=== PATIENT | male | born 1975 | race Caucasian/White ===

== ENCOUNTER 2021-11-22 08:04 | Emergency (ER) | payer OTHER, SELFPAY ==
[2021-11-22] VITALS (11 sets, daily range): BP systolic 130–170; BP diastolic 71–90; PULSE 75–88; RESP 13–18; TEMP 36.7; O2SAT 95–97; BMI 32.3
--- NOTE | 2021-11-22 08:36 | ED_ITS ---
HPI - Nausea/Vomiting/Diarrhea General Chief complaint: Dizziness Stated complaint: N/V exposed to poison hemlock Time Seen by Provider: 11/22/21 08:26 History of Present Illness HPI Narrative: Patient is a 46-year-old male history of vertigo presents today with vomiting and dizziness. States he was working with poison him like yesterday. He was careful work gloves long sleeves handled it mostly with gardening tools. He then everted both walked away so he did not inhale fumes. Early this morning woke up with dizziness he has vomited couple of times. He feels like his left ear is ?squishy.He states the dizziness is worse with movement. Seems to be when he gets up. That seems to trigger his nausea. No numbness tingling or weakness. No chest pain or palpitations. Related Data Previous Rx's Medication Instructions Recorded meclizine 25 mg tablet 25 mg PO TID PRN #10 tab 11/22/21 ondansetron 4 mg disintegrating 4 mg PO Q8H PRN #10 tab 11/22/21 tablet Review of Systems Review of Systems Narrative: GENERAL: Denies chills, fatigue, malaise, fever, sweats, travel HEENT: Denies sinus pain, ear pain, sore throat, difficulty swallowing, neck pain RESPIRATORY: Denies dyspnea, cough, wheezing, hemoptysis, sputum. CARDIOVASCULAR: Denies chest pain, palpitations, orthopnea, edema GASTROINTESTINAL: See HPI : Denies dysuria, frequency, incontinence, hematuria, urinary retention, flank pain. MUSCULOSKELETAL: Denies weakness, joint pain, or bony pain SKIN: No rash, no erythema, no pruritus NEUROLOGIC: Denies weakness, dizziness, headache, numbness, change in speech, confusion PSYCHIATRIC: No concerning psychosocial issues. 12 point review of systems is negative except for those stated above and HPI Patient History Social History Smoking Status: Current some day smoker Exam Initial Vital Signs Initial Vital Signs: Vital Signs Pulse Rate 88 11/22/21 08:23 Blood Pressure 170/90 H 11/22/21 08:23 Pulse Oximetry 96 11/22/21 08:23 GENERAL: Alert well-appearing 46-year-old male and in no acute distress. EARS: External ears normal bilaterally canals are clear bilaterally tympanic membranes are non erythematous without fluid bilateral HEENT: Head atraumatic,EOMI, pupils reactive, face symmetric, moist mucous membranes , neck is supple without meningeal signs CARDIOVASCULAR: Regular rate and rhythm without murmurs, rubs or gallops. RESPIRATORY: Breath sounds equal bilaterally, no wheezes rales or rhonchi. ABDOMEN: Soft, nontender. Normoactive bowel sounds all 4 quadrants. No guarding or rebound. EXTREMITIES: Normal range of motion, no clubbing or edema. Neurovascularly intact NEUROLOGICAL: Alert and oriented x4.Normal gait and speech. SKIN: Warm, dry, no laceration, no petechiae, no rashes or lesions. Course Orders Ordered: ED Orders 11/22/21 08:31 Complete Blood Count AUTO DIFF Stat Comprehensive Metabolic Panel Stat Lipase Stat 11/22/21 08:36 EKG-12 Lead Stat Discontinued Medications Sodium Chloride (Normal Saline 0.9%) 1,000 mls @ 1,000 mls/hr IV CONT DAVID Last Infusion: 11/22/21 10:29 Dose: 0 mls/hr Documented by: Admin: 11/22/21 09:03 Dose: 1,000 mls/hr Documented by: JOEL Meclizine HCl (Meclizine Hcl 12.5 Mg Tablet) 25 mg PO NOW ONE Stop: 11/22/21 08:37 Last Admin: 11/22/21 09:03 Dose: 25 mg Documented by: JOEL Ondansetron HCl (Ondansetron 4 Mg/2 Ml Inj) 4 mg IV NOW ONE Stop: 11/22/21 08:37 Last Admin: 11/22/21 09:03 Dose: 4 mg Documented by: JOEL Vital Signs Vital signs: Vital Signs - 8 hr 11/22/21 08:23 11/22/21 08:25 11/22/21 08:30 Temperature 98.1 F Pulse Rate 88 85 86 Respiratory Rate 18 Blood Pressure 170/90 H 170/90 H 161/90 H Pulse Oximetry 96 97 96 11/22/21 09:00 11/22/21 09:24 11/22/21 09:30 Temperature Pulse Rate 82 78 76 Respiratory Rate 16 16 Blood Pressure 135/76 137/72 130/76 Pulse Oximetry 97 96 95 11/22/21 09:46 11/22/21 10:00 11/22/21 10:29 Temperature Pulse Rate 79 76 75 Respiratory Rate 17 15 13 Blood Pressure 133/75 134/73 Pulse Oximetry 97 95 96 11/22/21 10:30 11/22/21 10:47 Temperature Pulse Rate 83 Respiratory Rate 18 Blood Pressure 131/71 131/71 Pulse Oximetry 95 MDM - Nausea/Vomiting/Diarrhea Lab Data Result diagrams: 11/22/21 08:31 11/22/21 08:31 Labs: Lab Results 11/22/21 11/22/21 Range/Units 08:31 08:31 WBC 8.2 (4.5-11.0) X10^3/uL RBC 4.23 L (4.5-5.9) X10^6/uL Hgb 13.5 (13.5-17.5) g/dL Hct 39.6 L (41-53) % MCV 93.5 (80-100) fL MCH 31.9 (26-34) PG MCHC 34.1 (30-36) % RDW 13.2 (11.6-14.8) % Plt Count 290 (150-400) X10^3/uL Neut % (Auto) 70.1 (50-75) % Lymph % (Auto) 21.6 L (25-40) % [place] % (Auto) 6.4 (3-14) % Eos % (Auto) 1.0 L (2-4) % Baso % (Auto) 0.9 (0-2) % Neut # (Auto) 5800 (0818-3816) /uL Lymph # (Auto) 1800 (2619-1385) /uL [place] # (Auto) 500 (0-900) /uL Eos # (Auto) 100 (0-450) /uL Baso # (Auto) 100 (0-100) /uL Sodium 138 (137-145) mmol/L Potassium 4.0 (3.4-5.1) mmol/L Chloride 105 (98-107) mmol/L Carbon Dioxide 24 (22-32) mmol/L BUN 17 (9-20) mg/dL Creatinine 0.55 L (0.66-1.25) mg/dL Estimated GFR > 60 (>60) mL/min BUN/Creatinine Ratio 30.9 H (6-22) Glucose 107 H (70-100) mg/dL Calcium 8.8 (8.4-10.2) mg/dL Total Bilirubin 0.4 (0.2-1.3) mg/dL AST 28 (17-59) IU/L ALT 26 (<50) IU/L Alkaline Phosphatase 65 (38-126) U/L Total Protein 7.3 (6.3-8.2) g/dL Albumin 4.4 (3.5-5.0) g/dL Globulin 2.9 (1.7-4.1) g/dL Albumin/Globulin Ratio 1.5 (1.0-2.8) Lipase 78 (23-300) U/L Urine Dip Bedside Urine Glucose Negative Bedside Urine Bilirubin - Negative Bedside Urine Ketone - Negative Urine Specific [place] 1.015 Bedside Urine Occult Blood - Negative Bedside Urine pH 6.5 Bedside Urine Protein - Negative Bedside Urine Urobilinogen - Negative Bedside Urine Nitrite - Negative Bedside Urine Leukocytes - Negative Esterase ECG Data Interpretation: Normal sinus rhythm rate 78 WA interval 164 QRS [address] changes no T- wave inversions MDM Narrative Medical decision making narrative: Patient sounds as though he took proper precautions against the poison hemlock. Nonetheless I consulted poison Control who agreed. at this time likely something else causing his symptoms. Patient does have a history of vertigo, symptoms seem to be similar. At this time the patient is overall feeling significantly better. He has been up to the restroom multiple times during his ED stay. No focal deficits. He says that he feels like his left ear has opened up and drained. Pressure in his sinuses has improved. Symptoms are most consistent with of vertigo similar to his previous presentations. At this time no indication for imaging. He has no focal deficits. He was mostly concerned about the poisonous hemlock. Discharge Plan Departure Patient Disposition: Home Clinical Impression: Vertigo Instructions: DI for Vertigo Activity Restrictions/Additional Instructions: *You have been diagnosed with vertigo *What to do: At this time I think may be a virus or sinus infection has caused her vertigo to act up. I am glad that her feeling a little bit better. This is unlikely to do with the poison hemlock *Continue to take medications as directed Meclizine 25 mg every 8 hours if needed for dizziness Zofran 4 mg every 8 hours if needed for nausea vomiting *Follow up with your primary care provider in 2-3 days or call [phone] *Return to ER if you should have worsening dizziness, persistent vomiting, numbness tingling weakness, muscle weakness, muscle spasms or any new, worsening or concerning symptoms Prescriptions: New meclizine 25 mg tablet 25 mg PO TID PRN (Reason: dizziness) Qty: 10 0RF ondansetron 4 mg tablet,disintegrating 4 mg PO Q8H PRN (Reason: nausea and vomiting) Qty: 10 0RF
[2021-11-22 08:46] LABS: Add Manual Diff / Slide Review NO; Basophils Absolute Auto 100 /uL (0-100); Basophils Percent Auto 0.9 % (0-2); Eosinophils Absolute Auto 100 /uL (0-450); Hematocrit 39.6 % (41-53); Hemoglobin 13.5 g/dL (13.5-17.5); Lymphocytes Absolute Auto 1800 /uL (1100-4500); Lymphocytes Percent Auto 21.6 % (25-40); Mean Corpuscular HGB Conc 34.1 % (30-36); Mean Corpuscular Hemoglobin 31.9 PG (26-34); Mean Corpuscular Volume 93.5 fL (80-100); Monocytes Absolute Auto 500 /uL (0-900); Monocytes Percent Auto 6.4 % (3-14); Neutrophils Absolute Auto 5800 /uL (1500-7000); Neutrophils Percent Auto 70.1 % (50-75); Platelet Count 290 X10^3/uL (150-400); Red Blood Cell Count 4.23 X10^6/uL (4.5-5.9); Red Cell Distribution Width 13.2 % (11.6-14.8); White Blood Cell Count 8.2 X10^3/uL (4.5-11.0)
[2021-11-22 08:53] LABS: Alanine Aminotransferase 26 IU/L (<50); Albumin 4.4 g/dL (3.5-5.0); Albumin Globulin Ratio 1.5 (1.0-2.8); Alkaline Phosphatase 65 U/L (38-126); Aspartate Aminotransferase 28 IU/L (17-59); BUN Creatinine Ratio 30.9 (6-22); Bilirubin Total 0.4 mg/dL (0.2-1.3); Blood Urea Nitrogen 17 mg/dL (9-20); Calcium 8.8 mg/dL (8.4-10.2); Carbon Dioxide 24 mmol/L (22-32); Chloride 105 mmol/L (98-107); Estimated Glomerular Filt Rate > 60 mL/min (>60); Globulin 2.9 g/dL (1.7-4.1); Glucose 107 mg/dL (70-100); HEMOLYSIS < 15 (0-50); Lipase 78 U/L (23-300); Sodium 138 mmol/L (137-145); Total Protein 7.3 g/dL (6.3-8.2)
[2021-11-22] MEDS: SODIUM CHLORIDE 0.9% 1,000 ML 1000 ML IV (09:03)
[2021-11-22] MEDS: ONDANSETRON 4 MG/2 ML INJ IV (09:03)
[2021-11-22] MEDS: MECLIZINE HCL 12.5 MG TABLET 25 MG PO (09:03)
== END 2021-11-22 10:49 | disposition home or self-care (01) ==
PROVIDERS: Emergency Provider Emergency Medicine
DX: R42 Dizziness and giddiness (principal); R11.2 Nausea with vomiting, unspecified
CPT/HCPCS: 36415; 80053; 81003; 83690; 85025; 93005; 93010; 96361; 96374; 99284; J2405

== ENCOUNTER → 2023-02-27 13:36 | Outpatient (CLI) | payer OTHER, SELFPAY ==
--- NOTE | 2023-02-27 | DI.ECHO.S_ITS ---
[facility] +---------+ : : [address] : : : : [id number] : : : : Phone: [phone] Echocardiogram Report + + :Name: MARTY LAND Study Date: 02/27/2023 Height: 70 in : [id number] ReadingLocation: Weight: 217 lb : : Gender: Male BSA: 2.2 m2 : :: 1975 Age: 47 yrs BP: 154/98 mmHg: :Reason For Study: palpitations : : Performed By: Elida Loredo : :Referring: LA CARRANZA M : + + Interpretation Summary The left ventricle is normal in size and wall thickness. Left ventricular systolic function appears normal without focal wall motion abnormalities. The ejection fraction is estimated to be 60-65%. Diastolic parameters suggest a relaxation abnormality of the left ventricle, consistent with probable normal filling pressures. The right ventricle is normal in size and function. Pulmonary artery pressures cannot be estimated because of the lack of a measurable TR jet velocity but the IVC suggests a CVP of around 8 mmHg. The left atrium is borderline dilated. There is no significant valvular heart disease. The aortic root is borderline dilated. The ascending aorta is mildly enlarged. Procedure: A two-dimensional transthoracic echocardiogram with color flow and Doppler was performed. The study quality was technically good. There is no prior echocardiogram noted for this patient. The patient was in normal sinus rhythm during the exam. Left Ventricle: The left ventricle is normal in size and wall thickness. The estimated left ventricular end diastolic volume is 34 ml. There is no thrombus. There is no ventricular septal defect visualized. Left ventricular systolic function appears normal without focal wall motion abnormalities. The ejection fraction is estimated to be 60-65%. Diastolic parameters suggest a relaxation abnormality of the left ventricle, consistent with probable normal filling pressures. Right Ventricle: The right ventricle is normal in size and function. Atria: The left atrium is borderline dilated. There is no Doppler evidence for an interatrial shunt. Mitral Valve: The mitral valve is normal in structure but abnormal in function. The mitral valve leaflets appear mildly thickened, but open well. There is no mitral valve stenosis. There is trace mitral regurgitation. Aortic Valve: The aortic valve is trileaflet. The aortic valve opens well. There is no aortic valve stenosis. No aortic regurgitation is present. Tricuspid Valve: The tricuspid valve is normal in structure and function. There is a trace or physiologic amount of tricuspid regurgitation. Pulmonary artery pressures cannot be estimated because of the lack of a measurable TR jet velocity but the IVC suggests a CVP of around 8 mmHg. Pulmonic Valve: The pulmonic valve leaflets are thin and pliable; valve motion is normal. There is no pulmonic valvular regurgitation. There is no significant valvular heart disease. Great Vessels: The aortic root is borderline dilated. The ascending aorta is mildly enlarged. The IVC is of normal diameter and collapses less than 50% with a sniff. This suggests a right atrial pressure of 8 mm Hg. Pericardium/ Pleura There is no pericardial effusion. There is no pleural effusion. MMode/2D Measurements & Calculations LVIDd: 5.0 cm LVOT diam: 2.5 cm LVIDs: 3.0 cm Ao root diam: 4.0 cm FS: 39.4 % asc Aorta Diam: 3.7 cm EPSS: 0.84 cm IVSd: 1.0 cm LVPWd: 0.79 cm LV valle. diameter/BSA (cm/m^2): 2.3 LV sys. diameter/BSA (cm/m^2): 1.4 LA A2 area: 21.3 cm2 RA area: 15.0 cm2 LA A4 area: 21.7 cm2 IVC diam: 1.2 cm LA length (vol): 5.5 cm LA vol: 71.3 ml LA vol index: 33.0 ml/m2 RVD1 (basal): 3.2 cm TAPSE: 1.9 cm Doppler Measurements & Calculations Ao V2 max: 130.2 cm/sec LVOT Max Andrew: 106.4 cm/sec Ao V2 mean: 104.6 cm/sec LV V1 max P.5 mmHg Ao max P.8 mmHg LV V1 VTI: 22.7 cm Ao mean P.6 mmHg JOSE ANGEL(I,D): 4.1 cm2 Ao V2 VTI: 27.8 cm JOSE ANGEL(V,D): 4.1 cm2 sev ratio: 0.82 JOSE ANGEL indexed to BSA (cm^2/m^2): 1.9 MV E max andrwe: 59.5 cm/sec PA V2 max: 86.9 cm/sec MV A max andrew: 79.3 cm/sec PA V2 mean: 64.8 cm/sec MV E/A: 0.75 PA mean P.8 mmHg Med Peak E' Andrew: 7.1 cm/sec PA pr(Accel): 17.3 mmHg E/E' med: 8.4 Lat Peak E' Andrew: 7.4 cm/sec E/E' lat: 8.0 E/e' average: 8.2 MV dec time: 0.24 sec SV(LVOT): 114.8 ml Reading Physician:06:02 PM
== END ==
PROVIDERS: PCP Family Medicine; Referring Provider Family Medicine; Visit Provider Family Medicine
DX: R00.2 Palpitations (principal); R07.9 Chest pain, unspecified; E78.5 Hyperlipidemia, unspecified; Z82.49 Family history of ischemic heart disease and other diseases of the circulatory system; I77.89 Other specified disorders of arteries and arterioles
CPT/HCPCS: 93306

== ENCOUNTER 2023-08-26 13:46 | Emergency (ER) | payer OTHER, SELFPAY ==
[2023-08-26] VITALS (8 sets, daily range): BP systolic 138–155; BP diastolic 81–94; PULSE 72–94; RESP 16; TEMP 36.6; O2SAT 94–96; BMI 31.5
[2023-08-26 16:10] LABS: Alanine Aminotransferase 31 IU/L (<50); Albumin 4.5 g/dL (3.5-5.0); Albumin Globulin Ratio 1.5 (1.0-2.8); Alkaline Phosphatase 55 U/L (38-126); Aspartate Aminotransferase 28 IU/L (17-59); Bilirubin Total 0.4 mg/dL (0.2-1.3); Blood Urea Nitrogen 16 mg/dL (9-20); Calcium 9.4 mg/dL (8.4-10.2); Carbon Dioxide 26 mmol/L (22-32); Chloride 104 mmol/L (98-107); Estimated Glomerular Filt Rate > 60 mL/min (>60); Glucose 98 mg/dL (70-100); HEMOLYSIS < 15 (0-50); Lipase 88 U/L (23-300); Potassium 3.8 mmol/L (3.4-5.1); Sodium 140 mmol/L (137-145); Total Protein 7.5 g/dL (6.3-8.2)
[2023-08-26 16:15] LABS: Add Manual Diff / Slide Review NO; Basophils Absolute Auto 100 /uL (0-100); Basophils Percent Auto 0.7 % (0-2); Eosinophils Absolute Auto 200 /uL (0-450); Eosinophils Percent Auto 1.6 % (2-4); Hematocrit 39.9 % (41-53); Hemoglobin 13.7 g/dL (13.5-17.5); Lymphocytes Absolute Auto 3300 /uL (1100-4500); Lymphocytes Percent Auto 33.7 % (25-40); Mean Corpuscular HGB Conc 34.3 % (30-36); Mean Corpuscular Hemoglobin 32.2 PG (26-34); Mean Corpuscular Volume 93.9 fL (80-100); Monocytes Absolute Auto 700 /uL (0-900); Monocytes Percent Auto 7.5 % (3-14); Neutrophils Absolute Auto 5500 /uL (1500-7000); Neutrophils Percent Auto 56.5 % (50-75); Platelet Count 291 X10^3/uL (150-400); Red Blood Cell Count 4.25 X10^6/uL (4.5-5.9); Red Cell Distribution Width 13.1 % (11.6-14.8); White Blood Cell Count 9.7 X10^3/uL (4.5-11.0)
--- NOTE | 2023-08-26 16:27 | DI.CT.S_ITS ---
PROCEDURE: CT ABDOMEN PELVIS W CON INDICATIONS: IV contrast only/left side abdominal pain TECHNIQUE: After the administration of intravenous contrast, axial sections acquired from the lung bases to the pubic symphysis. Coronal and sagittal reformats were performed. For radiation dose reduction, the following was used: automated exposure control, adjustment of mA and/or kV according to patient size. COMPARISON: None. FINDINGS: Image quality: Diagnostic. Lower Chest: No significant findings. ABDOMEN: Liver: No solid mass. Gallbladder: No radiopaque gallstones or wall thickening. Biliary ducts: No biliary dilation. Pancreas: No ductal dilation. Spleen: Size is within normal limits. Adrenal Glands: No adrenal nodules. Kidneys and Ureters: No hydronephrosis. No solid mass. No complex renal cystic lesion which requires follow up. Stomach and Bowel: Increased quantity of solid stool throughout the colon. Short segment of proximal sigmoid colon decompression and slight mural enhancement without pericolonic inflammation. No changes to suggest acute diverticulitis. Stomach and bowel loops are within normal limits. Normal appendix. Peritoneum: No abnormal intraperitoneal fluid. No free air. Ventral Wall: No significant ventral hernia. Abdominal Nodes: No retroperitoneal or mesenteric adenopathy by size criteria. Vessels: Aorta and inferior vena cava are normal in size. PELVIS: Pelvic Organs: Unremarkable. Bladder: No bladder wall thickening, accounting for underdistention. Pelvic Nodes: No enlarged lymph nodes. Miscellaneous: No inguinal hernias are seen. Bones: No aggressive osseous abnormality. IMPRESSION: Mildly increased quantity of solid colonic stool. No evidence of acute diverticulitis. There is one short segment of mild colonic spasm without other inflammatory changes. Dictated by: Felicia Mcdermott M.D. on 08/26/2023 at 17:20 Approved by: Felicia Mcdermott M.D. on 08/26/2023 at 17:24
--- NOTE | 2023-08-26 16:41 | ED_ITS ---
HPI - Abdominal Pain General Chief Complaint: Abdominal Pain Stated Complaint: per pt thinks diverticulitis Time Seen by Provider: 08/26/23 16:07 Source: patient Mode of arrival: Ambulatory History of Present Illness HPI narrative: Patient here with complains of left lower quadrant and left lower back pain since this morning. Worse with movement and palpation. No black or bloody stools. No urinary complaints. No prior history of diverticulitis. Related Data Previous Rx's Medication Instructions Recorded meclizine 25 mg tablet 25 mg PO TID PRN dizziness #10 tabs 11/22/21 ondansetron 4 mg disintegrating 4 mg PO Q8H PRN nausea and 11/22/21 tablet vomiting #10 tabs Allergies Allergy/AdvReac Type Severity Reaction Status Date / Time ibuprofen Allergy Verified 08/26/23 14:11 morphine Allergy Migraine Verified 08/26/23 14:11 Review of Systems Review of Systems Narrative: GENERAL: negative chills, fatigue, malaise, fever, sweats. HEENT: negative sinus pain, ear pain, sore throat RESPIRATORY: negative dyspnea, cough CARDIOVASCULAR: negative chest pain, palpitations GASTROINTESTINAL: negative nausea, vomiting, positive abdominal pain : negative dysuria, frequency, hematuria MUSCULOSKELETAL: negative muscle or bony pain SKIN: negative rash, skin lesions NEUROLOGIC: negative weakness, numbness ROS Unobtainable: All systems reviewed & are unremarkable except as noted in HPI and below Patient History Social History Smoking Status: Former smoker Smoking Status: Former smoker alcohol intake frequency: a few times a week Substance Use Type: does not use Exam Narrative Exam Narrative: GENERAL: in no distress, not toxic not dyspneic HEAD: Normocephalic. EYES: Pupils equal round ENT: Mucous membranes moist. NECK: Trachea midline. CARDIOVASCULAR: Regular rate and rhythm RESPIRATORY: Clear to auscultation. Breath sounds equal bilaterally. No wheezes, rales, or rhonchi. GASTROINTESTINAL: Abdomen soft, reproducible left lower quadrant tenderness reproducible lower left lumbar tenderness but no CVA tenderness. No pain out of portion exam. Bowel sounds are present. No peritoneal signs. EXTREMITIES: No gross deformities. BACK: No flank tenderness. NEURO: AOx4. SKIN: Warm and dry PSYCH: Not anxious, is cooperative Initial Vital Signs Initial Vital Signs: Vital Signs Temperature 98 F 08/26/23 14:06 Pulse Rate 94 H 08/26/23 14:06 Respiratory Rate 16 08/26/23 14:06 Blood Pressure 153/94 H 08/26/23 14:06 Pulse Oximetry 96 08/26/23 14:06 Oxygen Delivery Method Room Air 08/26/23 14:06 Course Orders Ordered: ED Orders 08/26/23 15:30 Complete Blood Count AUTO DIFF Stat Comprehensive Metabolic Panel Stat Lipase Stat 08/26/23 16:27 CT abdomen pelvis w con Stat Discontinued Medications Hydrocodone Bitart/Acetaminophen (Hydrocodone/Acet 5/325 Tablet) 2 tab PO NOW ONE Stop: 08/26/23 16:28 Last Admin: 08/26/23 17:09 Dose: 2 tab Documented By: YURI Sodium Chloride (Normal Saline 0.9%) 1,000 mls @ 1,000 mls/hr IV BOLUS ONE Stop: 08/26/23 17:26 Last Admin: 08/26/23 17:07 Dose: 1,000 mls/hr Documented By: YURI Ondansetron HCl (Ondansetron 4 Mg Odt) 4 mg PO NOW PRN PRN Reason: Nausea And Vomiting Ondansetron HCl (Ondansetron 4 Mg/2 Ml Inj) 4 mg IV NOW PRN PRN Reason: Nausea And Vomiting Vital Signs Vital signs: Vital Signs - 8 hr 08/26/23 14:06 08/26/23 15:38 08/26/23 15:49 Temperature 98 F Pulse Rate 94 H 79 Respiratory Rate 16 Blood Pressure 153/94 H 155/81 H Pulse Oximetry 96 95 Oxygen Delivery Method Room Air 08/26/23 15:49 08/26/23 16:00 08/26/23 16:00 Temperature Pulse Rate 78 74 Respiratory Rate Blood Pressure 142/81 H Pulse Oximetry 95 95 Oxygen Delivery Method 08/26/23 16:30 08/26/23 16:30 08/26/23 17:00 Temperature Pulse Rate 72 72 Respiratory Rate Blood Pressure 138/83 Pulse Oximetry 94 94 Oxygen Delivery Method 08/26/23 17:30 08/26/23 18:00 08/26/23 18:00 Temperature Pulse Rate 72 74 Respiratory Rate Blood Pressure 147/91 H Pulse Oximetry 94 96 Oxygen Delivery Method MDM - Abdominal Pain Lab Data 08/26/23 15:30 02/16/24 15:30 Labs: Lab Results 08/26/23 Range/Units 15:30 WBC 9.7 (4.5-11.0) X10^3/uL RBC 4.25 L (4.5-5.9) X10^6/uL Hgb 13.7 (13.5-17.5) g/dL Hct 39.9 L (41-53) % MCV 93.9 (80-100) fL MCH 32.2 (26-34) PG MCHC 34.3 (30-36) % RDW 13.1 (11.6-14.8) % Plt Count 291 (150-400) X10^3/uL Neut % (Auto) 56.5 (50-75) % Lymph % (Auto) 33.7 (25-40) % [place] % (Auto) 7.5 (3-14) % Eos % (Auto) 1.6 L (2-4) % Baso % (Auto) 0.7 (0-2) % Neut # (Auto) 5500 (3481-8151) /uL Lymph # (Auto) 3300 (1057-1936) /uL [place] # (Auto) 700 (0-900) /uL Eos # (Auto) 200 (0-450) /uL Baso # (Auto) 100 (0-100) /uL Sodium 140 (137-145) mmol/L Potassium 3.8 (3.4-5.1) mmol/L Chloride 104 (98-107) mmol/L Carbon Dioxide 26 (22-32) mmol/L BUN 16 (9-20) mg/dL Creatinine 0.64 L (0.66-1.25) mg/dL Estimated GFR > 60 (>60) mL/min BUN/Creatinine Ratio 25.0 H (6-22) Glucose 98 (70-100) mg/dL Calcium 9.4 (8.4-10.2) mg/dL Total Bilirubin 0.4 (0.2-1.3) mg/dL AST 28 (17-59) IU/L ALT 31 (<50) IU/L Alkaline Phosphatase 55 (38-126) U/L Total Protein 7.5 (6.3-8.2) g/dL Albumin 4.5 (3.5-5.0) g/dL Globulin 3.0 (1.7-4.1) g/dL Albumin/Globulin Ratio 1.5 (1.0-2.8) Lipase 88 (23-300) U/L Point of care testing: Urine Dip Bedside Urine Glucose Negative Bedside Urine Bilirubin - Negative Bedside Urine Ketone - Negative Urine Specific Steele 1.015 Bedside Urine Occult Blood - Negative Bedside Urine pH 6.0 Bedside Urine Protein - Negative Bedside Urine Urobilinogen - Negative Bedside Urine Nitrite - Negative Bedside Urine Leukocytes - Negative Esterase Imaging Data CT scan - abdomen/pelvis: Radiologist's Impression: [address] [address] [address] Scan Report Signed Patient: Prince Goldsmith MR#: [id number] : 1975 Acct:[id number] Age/Sex: 48 / M Date of Service: 08/26/23 Loc: ED Accession Number: [id number] Procedure: CT abdomen pelvis w con Ordering Provider: Philip Sánchez MD PROCEDURE: CT ABDOMEN PELVIS W CON INDICATIONS: IV contrast only/left side abdominal pain TECHNIQUE: After the administration of intravenous contrast, axial sections acquired from the lung bases to the pubic symphysis. Coronal and sagittal reformats were performed. For radiation dose reduction, the following was used: automated exposure control, adjustment of mA and/or kV according to patient size. COMPARISON: None. FINDINGS: Image quality: Diagnostic. Lower Chest: No significant findings. ABDOMEN: Liver: No solid mass. Gallbladder: No radiopaque gallstones or wall thickening. Biliary ducts: No biliary dilation. Pancreas: No ductal dilation. Spleen: Size is within normal limits. Adrenal Glands: No adrenal nodules. Kidneys and Ureters: No hydronephrosis. No solid mass. No complex renal cystic lesion which requires follow up. Stomach and Bowel: Increased quantity of solid stool throughout the colon. Short segment of proximal sigmoid colon decompression and slight mural enhancement without pericolonic inflammation. No changes to suggest acute diverticulitis. Stomach and bowel loops are within normal limits. Normal appendix. Peritoneum: No abnormal intraperitoneal fluid. No free air. Ventral Wall: No significant ventral hernia. Abdominal Nodes: No retroperitoneal or mesenteric adenopathy by size criteria. Vessels: Aorta and inferior vena cava are normal in size. PELVIS: Pelvic Organs: Unremarkable. Bladder: No bladder wall thickening, accounting for underdistention. Pelvic Nodes: No enlarged lymph nodes. Miscellaneous: No inguinal hernias are seen. Bones: No aggressive osseous abnormality. IMPRESSION: Mildly increased quantity of solid colonic stool. No evidence of acute diverticulitis. There is one short segment of mild colonic spasm without other inflammatory changes. Dictated by: Felicia Mcdermott M.D. on 08/26/2023 at 17:20 Approved by: Felicia Mcdermott M.D. on 08/26/2023 at 17:24 [facility] Narrative Medical decision making narrative: Patient here with complains of left lower quadrant and left lower back pain since this morning. Worse with movement and palpation. No black or bloody stools. No urinary complaints. No prior history of diverticulitis. After history and exam CBC CMP urinalysis CT abdomen pelvis, patient states he has had hydrocodone without problems in the past., Zofran normal saline [facility] CC: Abdominal pain Complicating co-morbidities: None Data collected from: Patient and Medical records reviewed: No recent visit for this complaint Differential considered: Includes but not limited to diverticulitis kidney stone pyelonephritis UTI bowel obstruction colitis Exam documented above, pertinent findings include: Tender left lower quadrant Lab Test results independently reviewed as above. Pertinent findings: WBC 9.7 sodium 140 potassium 3.8 lipase 88 Imaging studies independently reviewed: CT abdomen pelvis mild increased quantity of solid colonic stool. Otherwise no acute findings Treatments: Zofran normal saline hydrocodone Re-evaluations: 6:00 p.m.. Reviewed results with patient and . At this time they are reassuring. There is stool burden in the colon. He will try ihuu-pga-nugegow laxatives at home. He does not want any prescription medications for pain. He does agree, careful observation over the weekend and return immediately if worsening. He is early in his symptoms less than 12 hours. Discussion: Appropriate for discharge home. Exam and laboratory studies are reassuring. Pain is controlled. He states pain is only 3/10 through the course of the day. He does not want any prescriptions. Return precautions reviewed. Nontoxic at discharge. Diagnosis: Abdominal pain back pain Discharge Plan Departure Patient Disposition: Home Clinical Impression: Abdominal pain Qualifiers: Abdominal location: left lower quadrant Qualified Code(s): R10.32 - Left lower quadrant pain Back pain Qualifiers: Back pain location: low back pain Chronicity: acute Back pain laterality: left Sciatica presence: without sciatica Qualified Code(s): M54.50 - Low back pain, unspecified Instructions: DI for Low Back Pain, DI for Abdominal Pain-Adult Activity Restrictions/Additional Instructions: Please see family doctor next week for re-evaluation. You may try jnnv-jpb-hikgszx laxatives to promote stool movement based on CT scan imaging does show retained stool in the colon. At this time your laboratory studies and CT scan imaging otherwise is reassuring. No antibiotics are indicated. Return if worse if any questions or concerns Prescriptions: No Action meclizine 25 mg tablet 25 mg PO TID PRN (Reason: dizziness) Qty: 10 0RF ondansetron 4 mg tablet,disintegrating 4 mg PO Q8H PRN (Reason: nausea and vomiting) Qty: 10 0RF Referrals: Deirdre Ryan DO [Primary Care Provider] - Stand Alone Forms: Patient Portal/API
[2023-08-26] MEDS: SODIUM CHLORIDE 0.9% 1,000 ML 1000 ML IV (17:07)
[2023-08-26] MEDS: HYDROCODONE/ACET 5/325 TABLET 2 TAB PO (17:09)
== END 2023-08-26 18:20 | disposition home or self-care (01) ==
PROVIDERS: Emergency Provider Emergency Medicine; PCP Family Medicine
DX: R10.32 Left lower quadrant pain (principal); M54.50 Low back pain, unspecified
CPT/HCPCS: 36415; 74177; 80053; 81003; 83690; 85025; 96360; 99284; Q9967

== ENCOUNTER → 2024-03-02 12:05 | Outpatient (CLI) | payer OTHER, SELFPAY ==
--- NOTE | 2024-03-02 12:06 | DI.MG.S_ITS ---
MALE BILATERAL DIGITAL DIAGNOSTIC MAMMOGRAM 3D/2D: 03/02/2024 CLINICAL: Bilateral Breast Pain and Swelling. No prior exams were available for comparison. No significant masses, calcifications, or other findings are seen in either breast. IMPRESSION: INCOMPLETE: NEEDS ADDITIONAL IMAGING EVALUATION There is no abnormality seen in either breast to correspond with the area of clinical concern reported as pruritic nipples, and overlying swelling and tenderness. No palpable masses. An ultrasound is recommended for further evaluation and is scheduled to immediately follow this examination. This exam was interpreted at Station ID: [id number]. NOTE: For mammograms, a report in lay terms will be sent to the patient. Approximately 15% of breast malignancies will not be visualized mammographically. In the management of a palpable breast mass, a negative mammogram must not discourage biopsy of a clinically suspicious lesion. Electronically Signed By: Horacio Manley M.D. aty/:03/02/2024 13:09:25 ACR BI-RADS Category 0: Incomplete [id number]
--- NOTE | 2024-03-02 12:06 | DI.US.S_ITS ---
PROCEDURE: US SCROTUM INDICATIONS: abnormal levels of hormones in specimens TECHNIQUE: Real-time scanning was performed of the scrotum and testicles, with image documentation. Color and pulse Doppler interrogation was performed of both testicles. COMPARISON: [facility], CT, CT ABDOMEN PELVIS W CON, 08/26/2023, 16:56. FINDINGS: Right: Testicle is normal in size at 5 x 3.5 x 2.2 cm, and homogenous in echotexture. Epididymis is normal in overall size and morphology. No hydrocele. Varicocele is present. Overlying scrotal skin is normal in thickness. Left: Testicle is normal in size at 4.6 x 3.4 x 2.2 cm, and homogeneous in echotexture. Epididymis is normal in overall size and morphology. No hydrocele. Varicocele is present. Overlying scrotal skin is normal in thickness. Doppler: Color and pulse Doppler demonstrate normal and symmetric arterial flow in both testicles. IMPRESSION: 1. No mass. 2. No findings to suggest testicular torsion or epididymitis. 3. Bilateral varicoceles. No hydrocele. Dictated by: Trent Crook M.D. on 03/04/2024 at 18:19 Approved by: Trent Crook M.D. on 03/04/2024 at 18:23
--- NOTE | 2024-03-02 12:06 | DI.US.S_ITS ---
LIMITED ULTRASOUND OF LEFT BREAST: 03/02/2024 CLINICAL: Bilateral nipple redness and itching. Comparison is made to exam dated: 03/02/2024 [facility]. Color flow and real-time ultrasound of the left breast retroareolar were performed. Hein scale images of the real-time examination were reviewed. There is small gynecomastia in the left breast. IMPRESSION: BENIGN There is no sonographic evidence of malignancy. Left gynecomastia. There is no abnormality seen in the left breast to correspond with the reported nipple abnormality, however, recommend clinical follow up for persistent or worsening symptoms, or development of any clinically suspicious findings. Findings and recommendations were conveyed to the patient during today's evaluation. This exam was interpreted at Station ID: [id number]. Electronically Signed By: Horacio Manley M.D. aty/:03/02/2024 13:34:07 letter sent: Male Normal Exam Ultrasound BI-RADS: 2 Benign
--- NOTE | 2024-03-02 12:06 | DI.US.S_ITS ---
PROCEDURE: US BREAST RT LIMITED COMPARISON: [facility], BREAST LT LIMITED, 03/02/2024, 13:07. INDICATIONS: abnormal levels of hormones in specimens FINDINGS: IMPRESSION: Dictated by: Horacio Manley M.D. on 03/02/2024 at 13:16 Approved by: Horacio Manley M.D. on 03/02/2024 at 14:28
--- NOTE | 2024-03-02 12:07 | DI.MRI.S_ITS ---
PROCEDURE: MR BRAIN (PITUITARY) WWO CON INDICATIONS: abnormal levels of hormones in specimens TECHNIQUE: Noncontrast sagittal and axial FLAIR, axial gradient echo, axial diffusion and ADC through the brain. Thin-slice sagittal and coronal T1 spin echo, coronal T2 fast spin echo through the pituitary. After the administration contrast, optional dynamic coronal T1 spin echo, thin-slice coronal and sagittal T1 spin echo images through the pituitary fossa; axial and coronal and sagittal T1 spin echo with fat saturation through the brain. COMPARISON: None. FINDINGS: Image quality: Diagnostic, with note made of motion artifact. Pituitary Gland: The pituitary gland demonstrates normal signal and bulk. On the postcontrast imaging, no masses or abnormally enhancing areas are seen. The pituitary stalk and infundibulum have an unremarkable appearance. A normal appearing pituitary bright spot is seen posteriorly on the precontrast sagittal T1-weighted images. The optic chiasm and the ventral forebrain have an unremarkable appearance. CSF Spaces: Ventricles are normal in size and shape. Basal cisterns are patent. No extra-axial fluid collections. Brain: No intracranial bleeds or mass effects. No abnormal intracranial enhancement. Hein-white matter interface is intact. Diffusion weighted images demonstrate no acute ischemic insults. Brainstem is normal. Normal intravascular flow voids are present. Skull and face: Calvarial marrow is normal in signal. Orbits appear normal. Sinuses: Sinuses and mastoids are clear. IMPRESSION: Normal pituitary. No imaging explanation is found for this patient's presenting symptoms. Dictated by: Kavin Conn M.D. on 03/02/2024 at 15:12 Approved by: Kavin Conn M.D. on 03/02/2024 at 15:13
--- NOTE | 2024-03-02 13:02 | DI.US.S_ITS ---
Patient Name: MARTY LAND date: 1975 Sex: M Attending Physician: Shelby Indications: Date: 03/02/2024 13:32 At the request of: LA CARRANZA Procedure: US breast RT limited LIMITED ULTRASOUND OF RIGHT BREAST: 03/02/2024 CLINICAL: Bilateral nipple redness and itching. Comparison is made to exam dated: 03/02/2024 mammogram - . Color flow and real-time ultrasound of the right breast retroareolar were performed. Hein scale images of the real-time examination were reviewed. There is small gynecomastia in the right breast. IMPRESSION: BENIGN There is no sonographic evidence of malignancy. Right gynecomastia. There is no abnormality seen in the right breast to correspond with the reported nipple abnormality, however, recommend clinical follow up for persistent or worsening symptoms, or development of any clinically suspicious findings. Findings and recommendations were conveyed to the patient during today's evaluation. This exam was interpreted at Station ID: [id number]. Electronically Signed By: Horacio Manley M.D. aty/:03/02/2024 13:32:59 letter sent: Male Normal Exam Ultrasound BI-RADS: 2 Benign Continued Report - Page 2 of 2 Patient Name: MARTY LAND date: 1975 Sex: M Attending Physician: Shelby Indications: Date: 03/02/2024 13:32 At the request of: LA CARRANZA Procedure: US breast RT limited
== END ==
PROVIDERS: PCP Family Medicine; Referring Provider Family Medicine; Visit Provider Family Medicine
DX: N62 Hypertrophy of breast (principal); N64.4 Mastodynia; R92.2 Inconclusive mammogram; R89.1 Abnormal level of hormones in specimens from other organs, systems and tissues; R79.89 Other specified abnormal findings of blood chemistry; R89.9 Unspecified abnormal finding in specimens from other organs, systems and tissues; I86.1 Scrotal varices; N50.9 Disorder of male genital organs, unspecified; R68.82 Decreased libido
CPT/HCPCS: 70553; 76642; 76870; 77066; G0279; A9579

== ENCOUNTER 2024-06-10 11:12 | Emergency (ER) | payer OTHER, SELFPAY ==
[2024-06-10 11:19] VITALS: BP 135/84; PULSE 87; RESP 17; TEMP 36.8; O2SAT 99; BMI 34.4
--- NOTE | 2024-06-10 11:30 | ED.WOUNDLAC ---
HPI - Wound/Laceration <Afia Varghese PA-C - Last Filed: 06/10/24 12:04> General Chief Complaint: Wound/Laceration Stated Complaint: cut thumb Time Seen by Provider: 06/10/24 11:30 Source: patient Mode of arrival: Family Vehicle History of Present Illness HPI narrative: 49-year-old male who presents for a laceration to his left thumb. He was attempting to cut open a box with his pocket knife and he sliced his thumb. He is denying any numbness, tingling, loss of sensation. He did apply direct pressure, as it bled right away, he states his pocket knife was very sharp, he is right-handed dominant, he is unsure of when his last tetanus was. All other systems are reviewed and are negative. Related Data Previous Rx's Medication Instructions Recorded meclizine 25 mg tablet 25 mg PO TID PRN dizziness #10 tabs 11/22/21 ondansetron 4 mg disintegrating 4 mg PO Q8H PRN nausea and 11/22/21 tablet vomiting #10 tabs Allergies Allergy/AdvReac Type Severity Reaction Status Date / Time ibuprofen Allergy Verified 06/10/24 11:24 morphine Allergy Migraine Verified 06/10/24 11:24 Review of Systems <Afia Varghese PA-C - Last Filed: 06/10/24 12:04> Review of Systems Narrative: All other systems reviewed and are negative. Patient History <Afia Varghese PA-C - Last Filed: 06/10/24 12:04> Social History Smoking Status: Former smoker Smoking Status: Former smoker tobacco type: cigarettes alcohol intake frequency: holidays/special occasions only Substance Use Type: does not use Exam <Afia Varghese PA-C - Last Filed: 06/10/24 12:04> Initial Vital Signs Initial Vital Signs: Vital Signs Temperature 98.3 F 06/10/24 11:19 Pulse Rate 87 06/10/24 11:19 Respiratory Rate 17 06/10/24 11:19 Blood Pressure 135/84 06/10/24 11:19 Pulse Oximetry 99 06/10/24 11:19 Oxygen Delivery Method Room Air 06/10/24 11:19 Vital signs reviewed and are normal. Const Other: Smiling, seated, no distress. Extrem Left upper extremity: hand Details: normal capillary refill, neuromotor exam normal, neurosensory exam normal, vascular exam, normal ROM of fingers, no swelling and laceration (1.5 cm dorsal/radial aspect distal segment left thumb superior to the nail plate no involvement of the cuticle or nail plate); no ecchymosis Other: Full active range of ROM to the left thumb. Extension and flexion against resistance are grossly intact, no tendon involvement. No deeper structure seen, the wound edges are well aligned, no separation. Actively bleeding minimally. No arterial bleed. <Oanh Hanna DO - Last Filed: 06/10/24 17:02> Initial Vital Signs Initial Vital Signs: Vital Signs Temperature 98.3 F 06/10/24 11:19 Pulse Rate 87 06/10/24 11:19 Respiratory Rate 17 06/10/24 11:19 Blood Pressure 135/84 06/10/24 11:19 Pulse Oximetry 99 06/10/24 11:19 Oxygen Delivery Method Room Air 06/10/24 11:19 Procedures <NAM Holder Last Filed: 06/10/24 12:04> Laceration Repair Laceration 1: Time of procedure: 11:45 Site: hand (Left thumb, dorsal/radial, distal segment) Side (If applicable): left Size (cm): 1.5 Description: linear Depth: simple, single layer Pre-repair: irrigated extensively Skin layer closed with: steri-strips (with adhesive, tension applied. Hemostasis achieved. ) Course <NAM Holder Last Filed: 06/10/24 12:04> Course Course Narrative: Discussed the risks benefit of various repair types, the laceration is already well-approximated, no deeper structures, he does not work with water and is able to rest so we opted for Steri-Strips. Sutures would have been a little bit more invasive and would have cause more bleeding and pain patient tolerated the Steri-Strips closure and dressing application. Orders Ordered: Discontinued Medications Diphtheria/Tetanus/Acell Pertussis (Tet,Diph,Pertuss(Acell),Vac/Pf 0.5 Ml Syringe) 0.5 ml IM .ONCE ONE Stop: 06/10/24 11:26 Last Admin: 06/10/24 11:44 Dose: 0.5 ml Documented By: RODY Vital Signs Vital signs: Vital Signs - 8 hr 06/10/24 11:19 Temperature 98.3 F Pulse Rate 87 Respiratory Rate 17 Blood Pressure 135/84 Pulse Oximetry 99 Oxygen Delivery Method Room Air <Oanh Hanna DO - Last Filed: 06/10/24 17:02> Orders Ordered: Discontinued Medications Diphtheria/Tetanus/Acell Pertussis (Tet,Diph,Pertuss(Acell),Vac/Pf 0.5 Ml Syringe) 0.5 ml IM .ONCE ONE Stop: 06/10/24 11:26 Last Admin: 06/10/24 11:44 Dose: 0.5 ml Documented By: RODY Vital Signs Vital signs: Vital Signs - 8 hr 06/10/24 11:19 Temperature 98.3 F Pulse Rate 87 Respiratory Rate 17 Blood Pressure 135/84 Pulse Oximetry 99 Oxygen Delivery Method Room Air MDM - Wound/Laceration <Afia Varghese PA-C - Last Filed: 06/10/24 12:04> MDM Narrative Medical decision making narrative: The wound edges were well approximated and bleeding was easily controlled, we updated his tetanus, wound closure was performed with Steri-Strips and tincture for added adhesive, tension was pulled bleeding was completely stopped, 2 x 2 dressing in addition to some Coban tape for a bulky semi splint dressing of his left thumb. No numbness or tingling, he is comfortable. Discussed leaving the Steri-Strips on for the next 5 days, the bulky dressing and splint can be removed in about 48 hours. Keep it dry, elevate to minimize throbbing and of course monitor for signs of infection. Anticipate full resolution within 5-7 days. Discharge Plan Departure Patient Disposition: Home Clinical Impression: Laceration Instructions: DI for Laceration Repair Activity Restrictions/Additional Instructions: Please keep the bulky dressing on for at least 48 hours, it serves as a splint to minimize flexion of your thumb. The Steri-Strips that were used, the fibrous tapes those should remain on for 5-7 days. Keep this dry, if it gets wet then of course reapply a new dressing but avoidance is the best. Elevate to minimize throbbing, loosen the dressing if you do have any throbbing are develop any tingling, seek medical attention if you have any issues with rebleeding, your tetanus was updated today and is good for 10 years. Please keep this dressing dry when showering use a garbage bag or large gloves to cover. Prescriptions: No Action meclizine 25 mg tablet 25 mg PO TID PRN (Reason: dizziness) Qty: 10 0RF ondansetron 4 mg tablet,disintegrating 4 mg PO Q8H PRN (Reason: nausea and vomiting) Qty: 10 0RF Referrals: Deirdre Ryan DO [Primary Care Provider] - Stand Alone Forms: Patient Portal/API/Survey ED Sign-out <Oanh Hanna DO - Last Filed: 06/10/24 17:02> Cosign ED Attending [place] Attestation: I was immediately available in the department for consultation.
[2024-06-10] MEDS: TET,DIPH,PERTUSS(ACELL),VAC/PF 0.5 ML SYRINGE IM (11:44)
--- NOTE | 2024-06-10 12:07 | PC.NURSE ---
Pt states he was cutting his thumb with a box bender when the box slipped and subsequently caused him to accidentally cut his left thumb. Bleeding controlled w/ pressure. Wound washed. Thumb motion and circulation intact.
== END 2024-06-10 12:09 | disposition home or self-care (01) ==
PROVIDERS: Emergency Provider Physician Assistant Medical; PCP Family Medicine
DX: S61.012A Laceration without foreign body of left thumb without damage to nail, initial encounter (principal); W26.0XXA Contact with knife, initial encounter; Y93.89 Activity, other specified; Z23 Encounter for immunization
CPT/HCPCS: 90471; 99283; 99284; 90715

== ENCOUNTER → 2024-12-01 11:14 | Outpatient (CLI) | payer OTHER, SELFPAY ==
--- NOTE | 2024-12-01 11:15 | DI.MRI.S_ITS ---
PROCEDURE: MR FOOT RT WO CON INDICATIONS: lateral foot pain TECHNIQUE: Multiphasic, multisequence MRI of the forefoot was performed, without intravenous contrast administration. COMPARISON: [facility], CR, XR FOOT 3 VIEWS WEIGHT BEARING RIGHT, 11/30/2024, 9:32. FINDINGS: Image quality: Excellent. Bones and joints: No bone marrow contusions or metatarsal stress fractures. Mild degenerative changes at the 1st metatarsophalangeal joint and metatarsal sesamoid articulations with mild subchondral edema and small marginal osteophytes. Mild degenerative changes at the interphalangeal joints of the toes. No intraosseous lesions. Soft tissues: Small fluid collection is seen in the subcutaneous tissues at the plantar to plantar lateral aspect of the foot adjacent to the 5th metatarsal head measuring approximately 16 x 3 by 19 mm, compatible with an adventitial bursal effusion. The visualized plantar foot muscles demonstrate normal signal and bulk. Visualized flexor and extensor tendons appear intact, without tenosynovitis. The distal insertions of the peroneus brevis and longus tendons appear intact. The principal Lisfranc ligament appears intact. Sagittal images demonstrate no evidence for plantar plate tears. IMPRESSION: 1. Adventitial bursal effusion is seen in the plantar subcutaneous tissues adjacent to the 5th metatarsal head. 2. No acute trabecular bone injury. No significant ligament or tendon tearing is seen. 3. 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 Approved by: Deep Anderson M.D. on 12/04/2024 at 19:54
== END ==
PROVIDERS: PCP Family Medicine; Referring Provider Family Medicine; Visit Provider Family Medicine
DX: M79.671 Pain in right foot (principal); M21.621 Bunionette of right foot; M25.474 Effusion, right foot; M19.071 Primary osteoarthritis, right ankle and foot
CPT/HCPCS: 73718